=== PATIENT | male | born 1960 | race Caucasian/White ===

== ENCOUNTER 2023-12-21 04:30 | Emergency (ER) | payer OTHER ==
[~2023-12-21] VITALS: Ht 167.6 cm; Wt 77.1 kg
[2023-12-21 04:37] VITALS: BP 159/97; PULSE 84; RESP 18; TEMP 98; O2SAT 98
[2023-12-21] MEDS ORDERED: traMADol 50 MG TAB ONE (05:04)
[2023-12-21] MEDS: traMADol 50 MG TAB PO ONE (05:05)
[2023-12-21] MEDS: IBUPROFEN 600 MG TAB PO ONE (05:11)
[2023-12-21 05:33] VITALS: BP 134/97; PULSE 82; RESP 18; TEMP 98; O2SAT 98
== END 2023-12-21 05:33 | disposition home or self-care (01) ==
LOC: MED 04:30
DX: G89.29 Other chronic pain (principal); R51.9 Headache, unspecified; E11.9 Type 2 diabetes mellitus without complications; I10 Essential (primary) hypertension; E78.5 Hyperlipidemia, unspecified
CPT/HCPCS: 93005; 99283